=== PATIENT | female | born 1940 | race Caucasian/White ===

== ENCOUNTER 2023-07-09 05:33 | Day surgery (SDC) | payer MEDICARE ==
[2023-07-09] VITALS (14 sets, daily range): BP systolic 108–159; BP diastolic 61–83; PULSE 59–76; TEMP 97.6–98.4
[~2023-07-09] VITALS: Ht 149.9 cm; Wt 54.3 kg
[~2023-07-09 05:33] MED LIST: AMITRIPTYLINE H25 M1 PO; CEPHALEXIN500 M1 PO; CYMBALTA 30MG30 MG PO; CYMBALTA 60MG60 MG; EPIPEN 2-PAK1 MG/ML IM; IRON TABLETS325 MG PO; JARDIANCE10; K-DUR20 MEQ PO; LOZOL1.25 MG PO; NORVASC 10MG10 MG PO; PERCOCET 325 MG1 TA2 PO; PROAIR HFA0.09 MG/AC IH; REQUIP4 MG PO; ZYLOPRIM 300MG300 MG PO
[2023-07-09] MEDS ORDERED: LR 1,000 ML IV SCH (06:00)
[2023-07-09] MEDS ORDERED: dexAMETHasone 10 MG/ML VIAL ONE (06:17)
[2023-07-09] MEDS ORDERED: Midazolam 2 MG/2 ML VIAL ONE (06:17)
[2023-07-09] MEDS ORDERED: fentaNYL 50 MCG/ML 2 ML VIAL ONE (06:18)
[2023-07-09] MEDS ORDERED: Succinylcholine PF 200 MG/10 ML SYRINGE IV ONE (06:23)
[2023-07-09] MEDS ORDERED: hydrALAZINE 20 MG/ML 1 ML VIAL IV PRN (07:00)
[2023-07-09] MEDS ORDERED: droPERidol 2.5 MG/ML 2 ML VIAL IV PRN (07:00)
[2023-07-09] MEDS ORDERED: Meperidine 50 MG/ML 1 ML VIAL IV PRN (07:00)
[2023-07-09] MEDS ORDERED: HYDROmorphone 2 MG/1 ML VIAL IV PRN (07:00)
[2023-07-09] MEDS ORDERED: fentaNYL 50 MCG/ML 2 ML VIAL IV PRN (07:00)
[2023-07-09] MEDS ORDERED: Ondansetron 4 MG/2 ML VIAL IV PRN (07:30)
[2023-07-09] MEDS ORDERED: NS 1,000 ML IV SCH (07:30)
[2023-07-09] MEDS ORDERED: Mag/Al Hydrox/Simeth Susp 30 ML CUP PO PRN (07:30)
[2023-07-09] MEDS ORDERED: oxyCODONE 5 MG TAB PO PRN ×2 (07:30)
[2023-07-09] MEDS ORDERED: Acetaminophen 500 MG TAB PO PRN (07:30)
[2023-07-09] MEDS ORDERED: Magnes Hydrox (MOM) 80 MG/ML 30 ML CUP PO PRN (07:30)
[2023-07-09] MEDS ORDERED: Morphine 4 MG/ML VIAL IV PRN (07:30)
[2023-07-09] MEDS ORDERED: Bisacodyl 5 MG TAB PO PRN (07:30)
[2023-07-09] MEDS ORDERED: Naloxone 0.4 MG/ML VIAL IV PRN (07:30)
[2023-07-09] MEDS ORDERED: Tranexamic Acid 1,000 MG/10 ML VIAL ONE ×2 (07:43→09:06)
[2023-07-09] MEDS ORDERED: Thrombin Human (Recombinant) 5,000 UNITS VIAL TP ONE (08:22)
[2023-07-09] MEDS ORDERED: Acetaminophen 500 MG TAB PO SCH (08:22)
[2023-07-09] MEDS ORDERED: NS 10 ML VIAL IJ ONE (08:23)
[2023-07-09] MEDS ORDERED: Magnes Hydrox (MOM) 80 MG/ML 30 ML CUP PO SCH (09:00)
[2023-07-09] MEDS ORDERED: Ascorbic Acid 500 MG TAB PO SCH (09:00)
[2023-07-09] MEDS ORDERED: Sennosides/Docusate 8.6-50 MG TAB PO SCH (09:00)
--- NOTE | 2023-07-09 11:00 | NUR ---
Pt recently arrived to the floor from [facility]. Pt sleepy but does wake easily when spoken to. PT does fall back asleep during conversation. Drsg to right knee is CDI, hemovac to compression. SCDs on left leg as well as vaishnavi hose. Pt oriented to her room, no family present at this time
[2023-07-09] MEDS ORDERED: ceFAZolin 1 G in Water For Injection,Sterile 10 ML IV SCH ×2 (11:22→19:45)
--- NOTE | 2023-07-09 11:44 | NUR ---
Pt continues to do well. No complaints of pain. Educated her on room service. Pt has tolerated clear liquids. Her daughter is present in the room.
--- NOTE | 2023-07-09 14:30 | NUR ---
PT has been up with therapy. She did walk in to the restroom and voided. Pt now back in bed, having complaints of pain. 2nd yousif given per order.
[2023-07-09] MEDS ORDERED: IRON TABLETS325 MG PO (14:41)
--- NOTE | 2023-07-09 15:00 | NUR ---
Pt family rang call light stating pt was having a lot of pain. Pt was sleeping when I entered the room. Woke pt and asked her about her pain. Pt stated that her right knee was really bothering her. I then mentioned her still being able to rest. Daughter stated that that was how she elisa with pain is that she sleeps. Pt feels asleep during this conversation. Pt could not keep her eyes open long enough to discuss her pain. Daughter also stated that her pain was so bad that she was falling asleep while eating. I discussed that I did just give another oral pain pill and then I did not feel comfortable giving IV pain medication due to how drowsy she was. Stated that maybe giving it more time with the oral pain medication and resting since she was just up with therapy not long ago. Pt and family were okay with this
--- NOTE | 2023-07-09 20:38 | NUR ---
PT IN BED, REPORTS PAIN IS INCREASING TO RT KNEE. HS MEDS GIVEN INCLUDING PRN OXYCODONE 5MG PO NOW. PT IS ALERT AND ORIENTED X4. REFUSES NICOTENE PATCH. INT TO LFA FLUSHES WELL. DRSG TO RT KNEE D/I, HEMOVAC COMPRESSED.
[2023-07-09] MEDS ORDERED: Allopurinol 300 MG TAB PO SCH (20:41)
[2023-07-09] MEDS ORDERED: Nicotine 7 MG DAILY PATCH TD SCH (20:45)
[2023-07-09] MEDS ORDERED: amLODIPine 10 MG TAB PO SCH (21:00)
[2023-07-09] MEDS ORDERED: Amitriptyline 25 MG TAB PO SCH (21:00)
[2023-07-09] MEDS ORDERED: rOPINIRole 1 MG TAB PO SCH (21:00)
[2023-07-09] MEDS ORDERED: DULoxetine 30 MG CAP PO SCH (21:00)
[2023-07-10 00:05] VITALS: BP_SYST 138
[2023-07-10 03:40] VITALS: BP 122/88; PULSE 81; TEMP 98.1
[2023-07-10 04:07] VITALS: BP_SYST 122
--- NOTE | 2023-07-10 04:39 | NUR ---
PT RESTING IN BED, ASKS FOR PAIN MEDS. SCHEDULED ES TYLENOL AND PRN OXYCODONE 5MG PO GIVEN NOW. HEMOVAC DRAIN EMPTIED FOR 90CC, PLACED BACK TO COMPRESSION.
[2023-07-10 06:50] LABS: HEMOGLOBIN 10.1 g/dl (12.5-16.0)
[2023-07-10 06:56] LABS: HEMATOCRIT 32.1 % (37.0-47.0)
[2023-07-10 07:20] VITALS: BP 140/68; PULSE 75; TEMP 97.8
[2023-07-10 07:27] LABS: CREATININE, serum 1.16 mg/dL (0.57-1.11); POTASSIUM 4.1 mmol/L (3.5-4.5)
[2023-07-10 08:26] VITALS: BP_SYST 140
--- NOTE | 2023-07-10 08:41 | NUR ---
Pt doing okay. Hemovac drain removed per order. Pt tolerated well. Pt continues to be sleepy, but does wake easily. She ate most of her breakfast this am. PRN paqin medication given prior to therapy for the day. No other needs, call light within reach
[2023-07-10 11:09] VITALS: BP 123/66; PULSE 67; TEMP 98
--- NOTE | 2023-07-10 12:00 | NUR ---
LEYDI Gabriel identified self as LEYDI Student and completed intake with patient and daughter Queenie (ph#[phone]) at bedside. Patient lives in [place], [place] alone. Patient sees Margaret Dan APRN for primary care. Patient prefers to use [facility] for short term medications and mail orders keno terminal operator medications. Patient stated she has had some issues with affording medications before. LEYDI Gabriel informed patient that vouchers are available for some medications. Patient stated that she is usually independent with ADLs and IADLs and utilizes a rollator and cane when needed. Patient stated that she usually transports herself independently. Patient stated that she thinks she has a DPOA-HC and it is her daughter Queenie. Patient is covered by Medicare [employer]. LEYDI Gabriel went over PT/OT recommendations HH vs Outpatient PT. Patient and daughter expressed that they think HH would be better as patient would not be driving for some time. Daughter stated that patient previously used [facility]. Patient stated that she would prefer to use [facility] again. LEYDI Gabriel faxed [facility] (fax#[phone]) referral. Discharge Plan: Home with [place]
[2023-07-10] MEDS ORDERED: ASPI325T6 PO (12:54)
[2023-07-10] MEDS ORDERED: PERCOCET 325 MG1 TA2 PO (12:54)
--- NOTE | 2023-07-10 13:05 | NUR ---
D: Initial visit: Recruiting Consultant stopped by room on rounds. Pt was resting and content with daughter in the room. A: Pt asked for prayer. Pt lives in [place] and has family for support. Recruiting Consultant prayed with pt and daughter. Both appreciated the visit. P: Recruiting Consultant informed pt that if she needed anything from the spar machine operator helper area to let her nurse know. Recruiting Consultant will follow up as needed.
--- NOTE | 2023-07-10 13:35 | NUR ---
Reviewed discharge instructions with pt and daughter. Discussed follow up appointment and new prescription. Discussed not taking pain medication when she is too sleepy. INT was removed from left forearm. Pt being escorted out via wheelchair at this time
--- NOTE | 2023-07-10 15:58 | NUR ---
LEYDI Clark faxed discharge orders to [facility] ( ).
== END 2023-07-10 13:43 | disposition home health service (06) ==
LOC: SDCO 05:33 → SURG 10:25 → SDCO 07-10 13:43
PROVIDERS: Physician Assistant
DX: M16.11 Unilateral primary osteoarthritis, right hip (principal); F17.210 Nicotine dependence, cigarettes, uncomplicated; I10 Essential (primary) hypertension; J44.9 Chronic obstructive pulmonary disease, unspecified; K21.9 Gastro-esophageal reflux disease without esophagitis; G25.81 Restless legs syndrome; M06.9 Rheumatoid arthritis, unspecified; C44.90 Unspecified malignant neoplasm of skin, unspecified; Z79.84 Long term (current) use of oral hypoglycemic drugs; Z79.899 Other long term (current) drug therapy
CPT/HCPCS: OP; C1713; C1776; J0665; J0690; J1100; J2250; J2704; J2795; J3010; J7120